=== PATIENT | female | born 2005 | race Two or more races ===

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

== ENCOUNTER 2024-11-10 21:21 | Emergency (ER) | payer OTHER ==
[~2024-11-10] VITALS: Ht 165.1 cm; Wt 79.4 kg
[2024-11-10 23:31] LABS: HEMATOCRIT 39.9 % (36.0-45.00); MEAN CELL VOLUME 95.1 fL (80.00-100.00); MEAN CORPUSCULAR HEMOGLOBIN 33.5 pg (27.00-32.0); MEAN CORPUSCULAR HGB CONC 35.2 g/dl (32.0-36.0); PLATELET COUNT 376 K/uL (150-450); RED CELL DISTRIBUTION WIDTH 12.6 % (11.5-14.5)
== END 2024-11-11 00:18 | disposition home or self-care (01) ==
LOC: ER 21:21
DX: N92.6 Irregular menstruation, unspecified (principal); R10.2 Pelvic and perineal pain